=== PATIENT | female | born 1995 | race Caucasian/White ===

== ENCOUNTER 2017-07-23 18:16 | Emergency (ER) | payer BC | END 2017-07-23 19:44 | disposition left against medical advice (07) | LOC: UCCORT 18:16 | DX: R53.83 Other fatigue (principal); R05 Cough; Z53.21 Procedure and treatment not carried out due to patient leaving prior to being seen by health care provider ==

== ENCOUNTER 2017-07-23 21:11 | Emergency (ER) | payer BC ==
[2017-07-23 21:44] VITALS: BP 119/97
--- NOTE | 2017-07-23 22:19 | ED ---
Shortness of Breath - HPI Summary HPI Summary: 21 yr old female with the complaint of shortness of breath, fatigue and at times tightness/pleuritic pain when breathing. She is not a smoker. She is on control pills. 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 She is having trouble running the practices which is unusual. She denies long trips, leg swelling. She denies being ill, cough, fever, chills. - History of Current Complaint Chief Complaint: UCRespiratory Time Seen by Provider: 07/23/17 22:01 - Allergy/Home Medications Allergies/Adverse Reactions: Allergies Allergy/AdvReac Type Severity Reaction Status Date / Time No Known Allergies Allergy Verified 07/23/17 21:36 Home Medications: Home Medications Bcp 1 tab PO BEDTIME 07/23/17 [History Confirmed 07/23/17] PMH/Surg Hx/FS Hx/Imm Hx Infectious Disease History: No Infectious Disease History: Denies: Traveled Outside the [place] in Last 30 Days - Family History Known Family History: Positive: None, Other - denies family history of PE, blood clots - Social History Occupation: Student Lives: Dormitory/Roommates Alcohol Use: Occasionally Substance Use Type: Reports: None Smoking Status (MU): Never Smoked Tobacco Review of Systems Constitutional: Negative Positive: Shortness Of Breath All Other Systems Reviewed And Are Negative: Yes Physical Exam Triage Information Reviewed: Yes Vital Signs On Initial Exam: Initial Vitals Temp Pulse Resp BP Pulse Ox 98.1 F 81 20 119/97 99 07/23/17 21:37 07/23/17 21:37 07/23/17 21:37 07/23/17 21:37 07/23/17 21:37 Vital Signs Reviewed: Yes Appearance: Positive: Well-Appearing, No Pain Distress Skin: Positive: Warm, Skin Color Reflects Adequate Perfusion Head/Face: Positive: Normal Head/Face Inspection Eyes: Positive: EOMI ENT: Positive: Pharynx normal, TMs normal Respiratory/Lung Sounds: Positive: Clear to Auscultation, Breath Sounds Present Cardiovascular: Positive: RRR. Negative: Murmur Abdomen Description: Positive: Nontender Musculoskeletal: Positive: Strength/ROM Intact. Negative: Edema Left, Edema Right Neurological: Positive: Sensory/Motor Intact, Alert, Oriented to Person Place, Time, CN Intact II-III Psychiatric: Positive: Normal - [place] Coma Scale Best Eye Response: 4 - Spontaneous Best Motor Response: 6 - Obeys Commands Best Verbal Response: 5 - Oriented Coma Scale Total: 15 Diagnostics - Vital Signs Vital Signs Temp Pulse Resp BP Pulse Ox 07/23/17 21:37 98.1 F 81 20 119/97 99 - Laboratory Lab Statement: Any lab studies that have been ordered have been reviewed, and results considered in the medical decision making process. Course/Dx - Course Course Of Treatment: 21 yr old on control pills with decreased exercise tolerance, sob during work outs for track and field. She signed out AMA with refusal of ambulance transport to the ER for further work up of possible PE, blood clot, risk disability. - Diagnoses Provider Diagnoses: Shortness of breath Discharge - Discharge Plan Condition: Good Disposition: AGAINST MEDICAL ADVICE Referrals: Non Staff,Doctor [Primary Care Provider] -
== END 2017-07-23 22:16 | disposition left against medical advice (07) ==
LOC: UCCORT 21:11
DX: R06.02 Shortness of breath (principal)
CPT/HCPCS: 99201; G0463